=== PATIENT | female | born 1975 | race Caucasian/White ===

== ENCOUNTER 2020-03-14 10:09 | Outpatient (CLI) | payer OTHER | END 2020-03-14 10:30 | disposition home or self-care (01) | LOC: MRI 10:09 | PROVIDERS: ATTEND Orthopaedic Surgery | DX: M25.462 Effusion, left knee (principal); M25.562 Pain in left knee; M25.561 Pain in right knee | CPT/HCPCS: 73718 ==

== ENCOUNTER 2020-06-27 09:18 | Outpatient (CLI) | payer OTHER | END 2020-06-27 09:30 | disposition home or self-care (01) | LOC: SONOGRAMA 09:18 | PROVIDERS: ATTEND Pathology Anatomic Pathology & Clinical Pathology | DX: R22.1 Localized swelling, mass and lump, neck (principal) ==